=== PATIENT | male | born 1950 | race Caucasian/White ===

== ENCOUNTER 2017-10-05 17:52 | Emergency (ER) | payer OTHER | END 2017-10-05 21:07 | disposition home or self-care (01) | LOC: FTE 17:52 | DX: M79.604 Pain in right leg (principal) | CPT/HCPCS: 93971; 99284-25 ==

== ENCOUNTER 2017-10-10 13:23 | Emergency (ER) | payer OTHER | END 2017-10-10 15:54 | disposition home or self-care (01) | LOC: FTE 13:23 | DX: M79.604 Pain in right leg (principal) | CPT/HCPCS: 93971; 99284-25 ==

== ENCOUNTER → 2018-01-19 21:01 | Emergency (ER) | payer OTHER, MEDICAID ==
[2018-01-19] MEDS: IBUPROFEN 600 MG TAB PO (19:55)
== END | disposition home or self-care (01) ==
DX: M25.561 Pain in right knee (principal)
CPT/HCPCS: 73562; 99283-25

== ENCOUNTER 2018-11-28 14:18 | Emergency (ER) | payer OTHER, MEDICAID ==
[2018-11-28] MEDS: DEXAMETHASONE 10 MG/ML 1 ML INJ IM (14:55)
[2018-11-28] MEDS: DIPHENHYDRAMINE 50 MG INJ IM (14:55)
== END 2018-11-28 15:53 | disposition home or self-care (01) ==
LOC: FTE 15:53
DX: R21 Rash and other nonspecific skin eruption (principal)
CPT/HCPCS: 96372; 99284-25

== ENCOUNTER 2019-01-21 17:52 | Emergency (ER) | payer OTHER ==
[2019-01-21] MEDS ORDERED: IBUPROFEN 600 MG TAB PO (18:30)
[2019-01-21] MEDS: KETOROLAC 30 MG INJ IM (18:43)
== END 2019-01-21 19:09 | disposition home or self-care (01) ==
LOC: FTE 17:52
DX: S99.922A Unspecified injury of left foot, initial encounter (principal); X58.XXXA Exposure to other specified factors, initial encounter; Y92.9 Unspecified place or not applicable
CPT/HCPCS: 73630; 73630-LT; 96372; 99284-25

== ENCOUNTER 2019-02-08 21:21 | Emergency (ER) | payer OTHER ==
[2019-02-08] MEDS: IBUPROFEN 600 MG TAB PO (23:41)
== END 2019-02-09 00:23 | disposition home or self-care (01) ==
LOC: FTE 02-09 00:23
DX: R04.0 Epistaxis (principal)
CPT/HCPCS: 30903; 99283-25

== ENCOUNTER 2019-02-12 11:09 | Emergency (ER) | payer SELFPAY, OTHER | END 2019-02-12 15:09 | disposition left against medical advice (07) | LOC: E/R 15:09 | DX: Z53.21 Procedure and treatment not carried out due to patient leaving prior to being seen by health care provider (principal) ==